=== PATIENT | female | born 1990 | race Caucasian/White ===

== ENCOUNTER 2024-11-26 21:11 | Emergency (ER) | payer MEDICAID, SELFPAY ==
[2024-11-26 21:12] VITALS: BP 116/75; PULSE 86; RESP 17; TEMP 36.8; O2SAT 100
[2024-11-26 21:18] VITALS: BMI 21.7
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
== END 2024-11-26 23:45 | disposition home or self-care (01) ==
PROVIDERS: Emergency Provider Emergency Medicine
DX: S80.11XA Contusion of right lower leg, initial encounter (principal); V86.56XA Driver of dirt bike or motor/cross bike injured in nontraffic accident, initial encounter
CPT/HCPCS: 73590; 99283